=== PATIENT | female | born 1945 | race Caucasian/White ===

== ENCOUNTER 2017-04-14 13:41 | Emergency (ER) | payer MEDICARE ==
[~2017-04-14] VITALS: Ht 172.7 cm; Wt 99.8 kg
[~2017-04-14 13:41] MED LIST: BEE POLLEN PO; BUME2 PO; CHOL10002 PO; DRON400T; ELIQUIS5 MG; ELIQUIS5 MG PO; FURO20; LEVO750 PO; LISI20; LOVA40; Lovastatin20 MG PO; MAGOXI400 PO; MELA3 PO; METO50ER PO; Magnesium500 MG PO; OMEP20ER; OMEP20ER PO; POTCHL20ER PO; PROBIOTIC1 EAC4 PO; Prednisone20 MG PO; Prinivil10 MG PO; Super B Comple150 MG PO; VITAMIN B122500 MCG PO; VITAMIN D-32000 UNI1 PO; Vitamin D400 UNI1 PO
[2017-04-14 14:56] LABS: BASOPHILS ABSOLUTE AUTO 0.01 K/mm3 (0.00-0.23); BASOPHILS PERCENT AUTO 0 % (0-2); EOSINOPHILS ABSOLUTE AUTO 0.01 K/mm3 (0.00-0.68); EOSINOPHILS PERCENT AUTO 0 % (0-6); Hematocrit 31.8 % (33.0-51.0); IMMATURE GRAN ABSOLUTE AUTO 0.02 K/mm3 (0.00-0.10); IMMATURE GRAN PERCENT AUTO 0 % (0-1); LYMPHOCYTES ABSOLUTE AUTO 0.78 K/mm3 (0.84-5.20); LYMPHOCYTES PERCENT AUTO 12 % (21-46); MONOCYTES ABSOLUTE AUTO 0.45 K/mm3 (0.16-1.47); MONOCYTES PERCENT AUTO 7 % (4-13); Mean Corpuscular HGB 29.2 pg (26.0-34.0); Mean Corpuscular HGB Conc 31.4 g/dL (31.5-36.5); Mean Corpuscular Volume 93 fL (80-100); Mean Platelet Volume 10.6 fL (9.1-12.4); NEUTROPHILS ABSOLUTE AUTO 5.38 K/mm3 (1.96-9.15); NEUTROPHILS PERCENT AUTO 81 % (41-73); Platelet Count 148 K/mm3 (150-400); RDW Coefficient Variation 15.9 % (11.7-14.2); RDW Standard Deviation 54.7 fL (35.1-46.3); Red Blood Cell Count 3.42 M/mm3 (3.80-5.20); White Blood Cell Count 6.65 K/mm3 (4.00-11.30)
[2017-04-14 15:04] LABS: International Normalized Ratio 1.16; Prothrombin Time Results 12.1 Sec (9.7-11.5)
[2017-04-14 15:12] LABS: Alanine Aminotransfer (ALT/SGP 21 U/L (12-78); Albumin, Blood 3.3 g/dL (3.4-5.0); Albumin/Globulin Ratio 0.8 (0.8-1.8); Alk Phos 78 U/L (50-136); Anion Gap 7 mmol/L (6-16); Aspartate Aminotrans (AST/SGOT 27 U/L (12-37); Bilirubin, Total 0.5 mg/dL (0.1-1.0); Blood Urea Nitrogen 17 mg/dL (8-24); Bun/Creatinine Ratio 20.2 (12.0-20.0); CO2, Blood 29 mmol/L (21-32); Calcium, Blood 8.2 mg/dL (8.5-10.1); Chloride, Blood 100 mmol/L (98-108); Creatinine, Blood 0.84 mg/dL (0.40-1.00); Globulin, Blood 3.9 g/dL (2.2-4.0); Glomerular Filtration Rate >60 (60-); Glucose, Blood 94 mg/dL (70-99); Potassium, Blood 3.6 mmol/L (3.5-5.5); Sodium, Blood 136 mmol/L (136-145); Total Protein, Blood 7.2 g/dL (6.4-8.2); Troponin I <0.015 ng/mL (0.000-0.040)
[2017-04-14 16:20] LABS: Influenza A Positive (NEGATIVE); Influenza B Negative (NEGATIVE)
[2017-04-14] MEDS ORDERED: CEFP200 PO (16:38)
[2017-04-14] MEDS ORDERED: Norco 5-325 Ta1 EACH PO (16:38)
[2017-04-14] MEDS ORDERED: ALBU90OI INH (16:38)
== END 2017-04-14 17:15 | disposition home or self-care (01) ==
LOC: ER 13:41
PROVIDERS: Emergency Medicine
DX: J10.00 Influenza due to other identified influenza virus with unspecified type of pneumonia (principal); I48.91 Unspecified atrial fibrillation; Z95.2 Presence of prosthetic heart valve; Z90.710 Acquired absence of both cervix and uterus
CPT/HCPCS: 36415; 71046; 80053; 83880; 84484; 85025; 85610; 85730; 87804; 93005; 93010; 99284

== ENCOUNTER → 2017-09-07 | Outpatient (CLI) | payer MEDICARE ==
[~2017-09-07] MED LIST changes: +ALBU90OI INH; +CEFP200 PO; +Norco 5-325 Ta1 EACH PO
== END | disposition home or self-care (01) ==
LOC: LAB 11:45 → LAB SHORT 11:45
DX: N39.0 Urinary tract infection, site not specified (principal); R30.0 Dysuria
CPT/HCPCS: 87086

== ENCOUNTER → 2019-02-12 | Outpatient (CLI) | payer MEDICARE | END | disposition home or self-care (01) | LOC: LAB SHORT 18:19 → LAB 18:19 | DX: R30.0 Dysuria (principal) | CPT/HCPCS: 87086 ==

== ENCOUNTER 2020-10-14 15:10 | Emergency (ER) | payer MEDICARE ==
[~2020-10-14] VITALS: Ht 170.2 cm; Wt 96.2 kg
[2020-10-14] MEDS ORDERED: ALLO100 PO (15:27)
[2020-10-14] MEDS ORDERED: ALPR.5 PO (15:33)
[2020-10-14] MEDS ORDERED: BUSP5 PO (15:33)
[2020-10-14] MEDS ORDERED: ELIQUIS5 M3 PO (16:16)
== END 2020-10-14 16:37 | disposition home or self-care (01) ==
LOC: ER 15:10
DX: S90.01XA Contusion of right ankle, initial encounter (principal); M54.5 Low back pain; G89.29 Other chronic pain; Z91.041 Radiographic dye allergy status; Z91.040 Latex allergy status; Z88.5 Allergy status to narcotic agent; Z91.09 Other allergy status, other than to drugs and biological substances; Z88.8 Allergy status to other drugs, medicaments and biological substances; Z87.891 Personal history of nicotine dependence; W01.10XA Fall on same level from slipping, tripping and stumbling with subsequent striking against unspecified object, initial encounter
CPT/HCPCS: 73590; 99283-25; A9270

== ENCOUNTER → 2020-11-18 | Outpatient (CLI) | payer MEDICARE ==
[~2020-11-18] MED LIST changes: +ALLO100 PO; +ALPR.5 PO; +BUSP5 PO; +ELIQUIS5 M3 PO
== END ==
LOC: LAB SHORT 14:00 → LAB 14:00
DX: N39.0 Urinary tract infection, site not specified (principal)
CPT/HCPCS: 87086

== ENCOUNTER → 2021-01-11 | Outpatient (CLI) | payer MEDICARE | END | disposition home or self-care (01) | LOC: LAB SHORT 17:47 → LAB 17:47 | DX: N39.0 Urinary tract infection, site not specified (principal) | CPT/HCPCS: 87077; 87086; 87186 ==

== ENCOUNTER → 2021-06-09 | Outpatient (CLI) | payer MEDICARE ==
[2021-06-09 16:06] LABS: BASOPHILS ABSOLUTE AUTO 0.04 K/mm3 (0.00-0.23); BASOPHILS PERCENT AUTO 0 % (0-2); EOSINOPHILS ABSOLUTE AUTO 0.04 K/mm3 (0.00-0.68); EOSINOPHILS PERCENT AUTO 0 % (0-6); Hematocrit 33.3 % (33.0-51.0); IMMATURE GRAN ABSOLUTE AUTO 0.03 K/mm3 (0.00-0.10); IMMATURE GRAN PERCENT AUTO 0 % (0-1); LYMPHOCYTES ABSOLUTE AUTO 1.26 K/mm3 (0.84-5.20); LYMPHOCYTES PERCENT AUTO 14 % (21-46); MONOCYTES ABSOLUTE AUTO 0.53 K/mm3 (0.16-1.47); MONOCYTES PERCENT AUTO 6 % (4-13); Mean Corpuscular HGB 27.8 pg (26.0-34.0); Mean Corpuscular Volume 93 fL (80-100); Mean Platelet Volume 11.7 fL (9.1-12.4); NEUTROPHILS ABSOLUTE AUTO 7.23 K/mm3 (1.96-9.15); NEUTROPHILS PERCENT AUTO 79 % (41-73); Platelet Count 244 K/mm3 (150-400); RDW Coefficient Variation 15.9 % (11.7-14.2); RDW Standard Deviation 54.4 fL (35.1-46.3); White Blood Cell Count 9.13 K/mm3 (4.00-11.30)
== END ==
LOC: LAB SHORT 10:44
PROVIDERS: Student in an Organized Health Care Education/Training Program
DX: R10.10 Upper abdominal pain, unspecified (principal)
CPT/HCPCS: 85025

== ENCOUNTER 2022-02-22 09:34 | Day surgery (SDC) | payer MEDICARE ==
[~2022-02-22] VITALS: Ht 172.7 cm; Wt 92.8 kg
[2022-02-22] MEDS ORDERED: Vitamin B-12100 MCG (10:10)
[2022-02-22] MEDS ORDERED: Bisoprolol Fumar5 MG (10:10)
[2022-02-22] MEDS ORDERED: BUPRENORPHINE HC2 MG (10:10)
[2022-02-22] MEDS ORDERED: Lovastatin20 MG (10:11)
[2022-02-22] MEDS ORDERED: PANT20 (10:11)
[2022-02-22] MEDS ORDERED: MAGNESIUM OXID500 MG (10:11)
[2022-02-22] MEDS ORDERED: NITR2.5ER (10:11)
[2022-02-22] MEDS ORDERED: SPIR25 (10:11)
[2022-02-22] MEDS ORDERED: HYDHCL10EL (10:11)
[2022-02-22] MEDS ORDERED: POTA8 (10:12)
--- NOTE | 2022-02-22 10:13 | NUR ---
02/22/22 1013 HALLIE MARKS 2% LIDOCAINE 3ML ATOMIZED TO BACK OF THROAT PRE PROCEDURE PER DR IVAN JENKINS
--- NOTE | 2022-02-22 11:33 | NUR ---
02/22/22 1133 HALLIE MARKS IV WAS IN RIGHT WRIST; NOT RIGHT HAND
== END 2022-02-22 11:30 | disposition home or self-care (01) ==
LOC: ORSCSDS 09:34
PROVIDERS: Student in an Organized Health Care Education/Training Program
PROC: 0DB68ZX Excision of Stomach, Via Natural or Artificial Opening Endoscopic, Diagnostic (ICD-10-PCS; principal; 2022-02-22 11:15)
PROC: 0DB98ZX Excision of Duodenum, Via Natural or Artificial Opening Endoscopic, Diagnostic (ICD-10-PCS; principal; 2022-02-22 11:15)
DX: R10.13 Epigastric pain (principal); K31.7 Polyp of stomach and duodenum; K44.9 Diaphragmatic hernia without obstruction or gangrene; K29.70 Gastritis, unspecified, without bleeding; K92.1 Melena; J44.9 Chronic obstructive pulmonary disease, unspecified; I48.91 Unspecified atrial fibrillation; I12.9 Hypertensive chronic kidney disease with stage 1 through stage 4 chronic kidney disease, or unspecified chronic kidney disease; N18.30 Chronic kidney disease, stage 3 unspecified; E66.9 Obesity, unspecified; Z68.31 Body mass index [BMI] 31.0-31.9, adult; Z79.899 Other long term (current) drug therapy; Z79.01 Long term (current) use of anticoagulants
CPT/HCPCS: 88305; 88342; J2704; J7120

== ENCOUNTER → 2022-12-28 | Outpatient (CLI) | payer MEDICARE ==
[~2022-12-28] MED LIST changes: +BUPRENORPHINE HC2 MG; +Bisoprolol Fumar5 MG; +HYDHCL10EL; +Lovastatin20 MG; +MAGNESIUM OXID500 MG; +NITR2.5ER; +PANT20; +POTA8; +SPIR25; +Vitamin B-12100 MCG
[2022-12-28 20:11] LABS: Albumin, Blood 3.9 g/dL (3.4-5.0); Anion Gap 2 mmol/L (6-16); Blood Urea Nitrogen 38 mg/dL (8-24); CO2, Blood 34 mmol/L (21-32); Calcium, Blood 9.6 mg/dL (8.5-10.1); Chloride, Blood 100 mmol/L (98-108); Creatinine, Blood 1.41 mg/dL (0.40-1.00); Glomerular Filtration Rate 38 (60-); Glucose, Blood 105 mg/dL (70-99); Phosphorus, Blood 3.9 mg/dL (2.5-4.9); Potassium, Blood 4.3 mmol/L (3.5-5.5); Sodium, Blood 136 mmol/L (136-145)
== END ==
LOC: LAB SHORT 17:20 → LAB 17:20
PROVIDERS: Family Medicine
DX: R60.0 Localized edema (principal)
CPT/HCPCS: 80069

== ENCOUNTER 2023-02-28 09:56 | Day surgery (SDC) | payer MEDICARE ==
[~2023-02-28] VITALS: Ht 172.7 cm; Wt 85.8 kg
[~2023-02-28 09:56] MED LIST changes: +ACET325; -BUPRENORPHINE HC2 MG; +BUTRANS1 EAC9; +Bentyl20 MG; +Bumetanide2 MG PO; +DOCU100; +ELIQUIS2.5 MG PO; -ELIQUIS5 M3 PO; +K-TAB ER20 ME1 PO; +LOVA40 PO; -Lovastatin20 MG; +MAGNESIUM OXID500 M1; -MAGNESIUM OXID500 MG; +NITR.4SL; -NITR2.5ER; +NITRO-DUR1 EAC1; +ONDA4ODT; -PANT20; +PANT40; -POTA8; +PRESERVISION A1 EAC1; +VITAMIN B-122000 MC1 PO; -Vitamin B-12100 MCG; +ZINC15 PO
--- NOTE | 2023-02-28 10:36 | NUR ---
02/28/23 Marina Chapa SKIN TEST FOR IODINE ON THE RIGHT FOREARM. WILL CONTINUE TO CHECK SKIN FOR ANY REACTION.
[2023-02-28 11:52] VITALS: BP 122/67
--- NOTE | 2023-02-28 12:24 | NUR ---
02/28/23 1224 Diogo aMradiaga IV REMOVED INTACT. SITE WNL.
== END 2023-02-28 12:43 | disposition home or self-care (01) ==
LOC: ORSCSDS 09:56
PROVIDERS: Student in an Organized Health Care Education/Training Program
PROC: 08RK3JZ Replacement of Left Lens with Synthetic Substitute, Percutaneous Approach (ICD-10-PCS; principal; 2023-02-28 11:30)
DX: H25.13 Age-related nuclear cataract, bilateral (principal); I48.91 Unspecified atrial fibrillation; Z79.01 Long term (current) use of anticoagulants; J44.9 Chronic obstructive pulmonary disease, unspecified; I50.9 Heart failure, unspecified; E78.5 Hyperlipidemia, unspecified; I10 Essential (primary) hypertension; Z87.891 Personal history of nicotine dependence
CPT/HCPCS: A9270; J2250; J3010; J7040; V2632

== ENCOUNTER 2023-03-07 09:53 | Day surgery (SDC) | payer MEDICARE ==
[~2023-03-07] VITALS: Ht 172.7 cm; Wt 84.8 kg
[2023-03-07] MEDS ORDERED: PROLIA60 MG/1 ML SQ (10:58)
[2023-03-07 11:38] VITALS: BP 136/71
--- NOTE | 2023-03-07 11:46 | NUR ---
03/07/23 1146 Diogo Maradiaga PT STATES SHE WOULD LIKE A TYLENOL FOR DISCOMFORT IN HER EYE. -05/27
== END 2023-03-07 12:15 | disposition home or self-care (01) ==
LOC: ORSCSDS 09:53
PROVIDERS: Student in an Organized Health Care Education/Training Program
PROC: 08RJ3JZ Replacement of Right Lens with Synthetic Substitute, Percutaneous Approach (ICD-10-PCS; principal; 2023-03-07 11:30)
DX: H25.11 Age-related nuclear cataract, right eye (principal); H35.30 Unspecified macular degeneration; Z96.1 Presence of intraocular lens; I48.91 Unspecified atrial fibrillation; I50.9 Heart failure, unspecified; J44.9 Chronic obstructive pulmonary disease, unspecified; I10 Essential (primary) hypertension; E78.5 Hyperlipidemia, unspecified; K21.9 Gastro-esophageal reflux disease without esophagitis; Z79.01 Long term (current) use of anticoagulants; Z79.899 Other long term (current) drug therapy; Z87.891 Personal history of nicotine dependence
CPT/HCPCS: A9270; J2250; J3010; J7040; V2632

== ENCOUNTER → 2023-03-14 | Outpatient (CLI) | payer MEDICARE ==
[~2023-03-14] MED LIST changes: +PROLIA60 MG/1 ML SQ
== END ==
LOC: LAB SHORT 14:29 → LAB 14:29
DX: R30.0 Dysuria (principal)
CPT/HCPCS: 87077; 87086; 87186